=== PATIENT | female | born 1970 | race Hispanic/Latino ===

== ENCOUNTER 2017-04-16 07:14 | Day surgery (SDC) | payer OTHER ==
[2017-04-16 07:40] VITALS: BMI 20.7
[2017-04-16] MEDS ORDERED: Simethicone 40 mg/0.6 ml Liquid (30 ml) ONE (08:23)
[2017-04-16] MEDS ORDERED: Lactated Ringer's 500 ML IV SCH (11:00)
[2017-04-16 11:18] VITALS: TEMP 98.9
[2017-04-16 11:36] VITALS: O2SAT 99
[2017-04-16 14:17] VITALS: BP 117/68; PULSE 69; RESP 18
== END 2017-04-16 14:16 | disposition home or self-care (01) ==
LOC: C.ENDO 07:14
PROVIDERS: ATTEND Internal Medicine Gastroenterology
DX: K64.8 Other hemorrhoids (principal)
CPT/HCPCS: 45378; 84703; J7120